=== PATIENT | male | born 1995 | race Caucasian/White ===

== ENCOUNTER 2016-10-18 19:40 | Emergency (ER) | payer OTHER ==
[~2016-10-18] VITALS: Ht 180.3 cm; Wt 86.6 kg
[2016-10-18 19:42] VITALS: TEMP 36.6; Ht 180.3 cm; Wt 86.6 kg
[2016-10-18] MEDS ORDERED: ACETAMINOPHEN 500 MG TAB PO STA (20:23)
--- NOTE | 2016-10-18 20:24 | DIAGNOSTIC IMAGING REPORT ---
HEAD CT NONCONTRAST CT DOSE: 537.48 mGy.cm HISTORY: Trauma. Pain. head injury, vomiting TECHNIQUE: Multiaxial CT images of the head were performed without the use of intravenous contrast. Comparison: None. Findings: Moderate mucosal thickening of the sphenoid and ethmoid air cells. Mild mucosal thickening left frontal sinuses. Mastoid air cells are clear. The calvarium and skull base are intact. The ventricles and sulci are within normal limits. There is no mass, hematoma, midline shift, or acute infarct. Impression: Chronic sinusitis. No acute intracranial abnormality. Electronically signed by: Javier Cooper M.D. 10/18/2016 8:22 PM Dictated Date/Time: 10/18/2016 8:20 PM
[2016-10-18] MEDS ORDERED: ONDANSETRON 4MG OD TAB PO ONE (20:30)
[2016-10-18 21:04] VITALS: BP 123/72; PULSE 96; O2SAT 98
--- NOTE | 2016-10-18 21:28 | EMERGENCY ROOM VISIT NOTE ---
ED Visit Note First contact with patient: 19:50 CHIEF COMPLAINT: Head injury HISTORY OF PRESENT ILLNESS: This 20-year-old male patient presented to the emergency department ambulatory complaining of headache and vomiting. 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 He reports a headache and 5-6 episodes of vomiting which occurred 30 minutes ago. The patient is feeling slightly better at this time. He rates his discomfort an 8/10. He has not taken any medication for the headache. There was no loss of consciousness. He denies neck pain. He denies blurred vision, slurred speech, numbness or weakness. The patient denies bowel or bladder dysfunction. The patient denies any other injuries. REVIEW OF SYSTEMS: A review of systems was performed with positives and pertinent negatives listed in the history of present illness. All other systems were reviewed and are negative. ALLERGIES: No known drug allergies MEDICATIONS: No chronic medications PMH: No significant past medical history. SOCIAL HISTORY: The patient is a [employer] student and lives with roommates. Nonsmoker, admits to occasional alcohol use. PHYSICAL EXAM: Vital Signs: Reviewed Nurse's notes, vital signs stable. GENERAL : This is a 20-year-old male, in no acute distress, well-developed, well- nourished. NEURO: The patient is alert, oriented to person place and time, and coherent. Normal mini mental status exam. Negative Romberg and pronator drift. Cerebellar function intact. HEAD: Normocephalic, atraumatic. EYES: Pupils are equal round and reactive to light and accommodation. EOMs are full and optic discs and fundi are normal. There is no swelling or discoloration of the tissue surrounding the eyes. EARS: External auditory canals clear without blood. NOSE: Patent without tenderness. No septal hematoma. FACE: No facial bone tenderness. NECK: Supple. There is no cervical spine tenderness. The patient does not have tenderness with movement of the neck. RADIOGRAPHIC FINDINGS: HEAD CT NONCONTRAST CT DOSE: 537.48 mGy.cm HISTORY: Trauma. Pain. head injury, vomiting TECHNIQUE: Multiaxial CT images of the head were performed without the use of intravenous contrast. Comparison: None. Findings: Moderate mucosal thickening of the sphenoid and ethmoid air cells. Mild mucosal thickening left frontal sinuses. Mastoid air cells are clear. The calvarium and skull base are intact. The ventricles and sulci are within normal limits. There is no mass, hematoma, midline shift, or acute infarct. Impression: Chronic sinusitis. No acute intracranial abnormality. ED COURSE: I examined the patient. He was given Zofran and Tylenol. CT of the head was performed and showed no acute findings. Customary head injury precautions were reviewed with the patient. He was instructed to follow-up with [facility] as needed. He verbalized understanding of my assessment and treatment plan. The patient was discharged home in good condition ambulatory. DIAGNOSIS: Head injury Problem List Surgical Problems: (1) H/O wisdom tooth extraction Status: Resolved Current/Historical Medications No Active Prescriptions or Reported Meds Allergies Coded Allergies: No Known Allergies (Unverified , 09/19/14) Vital Signs Date Time Temp Pulse Resp B/P Pulse Ox O2 Delivery O2 Flow Rate FiO2 10/18/16 21:04 96 18 123/72 98 Room Air 10/18/16 19:45 18 96 10/18/16 19:42 36.6 98 16 126/76 96 Room Air Medications Administered Medications (Trade) Dose Ordered Sig/Radha Route Start Time Stop Time Status Last Admin Dose Admin Acetaminophen (Tylenol Tab) 1,000 mg NOW STAT PO 10/18/16 20:23 10/18/16 20:24 DC 10/18/16 20:28 1,000 MG Ondansetron HCl (Zofran Odt) 4 mg ONE ONCE PO 10/18/16 20:30 10/18/16 20:31 DC 10/18/16 20:28 4 MG Departure Information Impression Primary Impression: Closed head injury Dispostion Home / Self-Care Condition GOOD Prescriptions No Active Prescriptions or Reported Meds Referrals No Doctor, Assigned (PCP) Patient Instructions My [facility] Additional Instructions You have been treated in the Emergency Department for a Closed Head Injury. CT Scan of your head/brain demonstrated no acute bleeding or other abnormalities. This does not completely rule out the risk for future damage to the brain. For pain control, you can use the following [id number] medicines (if >12 yo): - Regular strength (325mg/tab) Tylenol (acetaminophen) 2 tabs every 4-6 hours as needed. Do not exceed 12 tablets in a 24 hour period. Avoid taking more than 4 grams (4000 mg) of Tylenol per day. This includes any other sources of acetaminophen you may take on a regular basis. - Regular strength (200 mg/tab) Advil (ibuprofen) 1-2 tabs every 4-6 hours as needed. Do not exceed a dose of 3200 mg per day. You should relax in a quiet, dark place for the rest of the day. Avoid any possible triggers including: cigarette smoke, caffeine, nicotine, chocolate, wine, beer, loud noises or music, or bright lights. You should schedule a follow-up appointment in 2-3 days with your Primary Care Provider or established Neurologist for further evaluation and treatment of your Headache. You should NOT return to athletic play until reevaluated by your Carpet Installation Specialist. You should fully comply with their standard protocol regarding head injuries. Your Carpet Installation Specialist OR Primary Care Provider will have the final say in your return to athletic play. This timeframe should be AT LEAST 1 week AFTER the date of last symptoms experienced! This is ESSENTIAL to allow for adequate brain healing time and for reduced risk of re-injury. Return to the Emergency Department if your current symptoms worsen despite treatment course outlined above, or if you develop any of the following symptoms : intractable pain despite aforementioned treatment course, visual disturbances , loss of vision, unilateral weakness or facial drooping, slurring of speech, loss of coordination, or loss of consciousness. Problem Qualifiers Primary Impression: Closed head injury Encounter type: initial encounter Qualified Codes: S09.90XA - Unspecified injury of head, initial encounter
== END 2016-10-18 21:36 | disposition home or self-care (01) ==
LOC: C.EDB 19:41 → C.EDD 21:36
DX: S09.90XA Unspecified injury of head, initial encounter (principal); W50.0XXA Accidental hit or strike by another person, initial encounter; Y93.71 Activity, boxing